=== PATIENT | female | born 1980 | race Two or more races ===

== ENCOUNTER → 2024-03-15 | Outpatient (CLI) | payer BC, MEDICAID, SELFPAY ==
--- NOTE | 2024-03-15 16:30 | XR_ITS ---
Examination: Thyroid sonography complete TECHNIQUE: Grayscale sonographic images thyroid lobes with color flow analysis Exam date and time: March 15, 2024 1628 hours Comparison March 16, 2022 INDICATIONS: History thyroid nodules including midpole right thyroid 11 mm upper pole left thyroid 6 mm mid pole left thyroid 8 mm FINDINGS: Right thyroid 4.8 x 1.4 x 2.0 cm Upper pole nodule 5 x 5 mm Midpole cyst 6 x 5 mm Lower pole isthmus cyst 5 x 5 mm Left thyroid 5.0 x 1.3 x 2.0 cm Upper pole nodule 5 x 5 mm, 7 x 5 mm Midpole cyst 5 x 4 mm IMPRESSION: Small thyroid nodules as above
== END | disposition home or self-care (01) ==
LOC: CDIM 16:04
PROVIDERS: Referring Provider Nurse Practitioner Family; Visit Provider Nurse Practitioner Family
DX: E04.2 Nontoxic multinodular goiter (principal)
CPT/HCPCS: 76536